=== PATIENT | female | born 1960 | race Caucasian/White ===

== ENCOUNTER 2019-06-30 20:43 | Emergency (ER) | payer MEDICARE, MEDICAID ==
[2019-06-30] MEDS ORDERED: Sodium Chloride 0.9% 10 ML Syringe FLUSH PRN (20:54)
[2019-06-30] MEDS ORDERED: Sodium Chloride 0.9% 2.5 ML Syringe FLUSH PRN (20:54)
--- NOTE | 2019-06-30 20:55 | EDM.PDOC ---
ED HPI GENERAL MEDICAL PROBLEM - General Chief Complaint: Upper Extremity Injury/Pain Stated Complaint: PT HAS BACK PAIN Time Seen by Provider: 06/30/19 20:46 - History of Present Illness INITIAL COMMENTS - FREE TEXT/NARRATIVE: HISTORY AND PHYSICAL: History of present illness: Patient 58-year-old white female with an extensive past medical history including coronary artery disease with stent 4 who presents with a concern of bilateral arm pain upper back pain that began when she was helping her sister moving pulled a muscle in her left arm and chest she denied discomfort in her chest denies palpitations diaphoresis nausea vomiting or shortness of breath she states this has been relatively constant 1 month patient states she has history of chronic anemia Review of systems: As per history of present illness and below otherwise all systems reviewed and negative. Past medical history: As per history of present illness and as reviewed below otherwise noncontributory. Surgical history: As per history of present illness and as reviewed below otherwise noncontributory. Social history: No reported history of drug or alcohol abuse. Family history: As per history of present illness and as reviewed below otherwise noncontributory. Physical exam: HEENT: Atraumatic, normocephalic, pupils reactive, negative for conjunctival pallor or scleral icterus, mucous membranes moist, throat clear, neck supple, nontender, trachea midline. Lungs: Clear to auscultation, breath sounds equal bilaterally, chest nontender. Heart: S1S2, regular, negative for clicks, rubs, or JVD. Abdomen: Soft, nondistended, nontender. Negative for masses or hepatosplenomegaly. Negative for costovertebral tenderness. Pelvis: Stable nontender. Genitourinary: Deferred. Rectal: Deferred. Extremities: Atraumatic, negative for cords or calf pain. Neurovascular unremarkable. Neuro: Awake, alert, oriented. Cranial nerves II through XII unremarkable. Cerebellum unremarkable. Motor and sensory unremarkable throughout. Exam nonfocal. Diagnostics: CBC CMP troponin PT/INR chest x-ray EKG Therapeutics: IV diagnostic cardiac sonographer Impression: #1 medical screening exam #2 history of coronary artery disease #3 bilateral arm and back pain 1 month Definitive disposition and diagnosis as appropriate pending reevaluation and review of above. left arm Pain Score (Numeric/FACES): 10 - Related Data Allergies Allergy/AdvReac Type Severity Reaction Status Date / Time Penicillins Allergy Hives Verified 06/30/19 21:07 Home Meds: Home Meds Aspirin [Lite Coat Aspirin] 81 mg PO DAILY 05/04/14 [History] Isosorbide Mononitrate [Isosorbide Mononitrate ER] 30 mg PO BID 05/04/14 [ History] Lisinopril 20 mg PO DAILY 05/04/14 [History] Metoprolol Succinate 25 mg PO BID 05/04/14 [History] Omeprazole 20 mg PO DAILY 05/04/14 [History] Simvastatin [Zocor] 40 mg PO BEDTIME 05/04/14 [History] Ticagrelor [Brilinta] 90 mg PO Q12HR 05/04/14 [History] Review of Systems - Review of Systems Review Of Systems: ROS reveals no pertinent complaints other than HPI. ED EXAM, GENERAL - Physical Exam Exam: See Below (T dictation) Course - Vital Signs Text/Narrative:: I discussed with patient her anemia as well as EKG changes and atypical presentation tonight. With unclear clinical statement I suggested admission for observation and possible blood transfusion patient declines states her anemia is chronic and she'll follow-up with her primary care doctor regarding expressed concerns. Last Recorded V/S: Last Vital Signs Temp 36.1 C 06/30/19 20:43 Pulse 89 06/30/19 20:43 Resp 18 06/30/19 20:43 BP 149/68 H 06/30/19 20:43 Pulse Ox 98 06/30/19 20:43 - Orders/Labs/Meds Orders: Active Orders 24 hr Category Date Time Status Cardiac Monitoring [RC] . DIRECTED Care 06/30/19 20:54 Active EKG Documentation Completion [RC] STAT Care 06/30/19 20:55 Active Sodium Chloride 0.9% [Saline Flush] Med 06/30/19 20:54 Active 10 ml FLUSH ASDIRECTED PRN Sodium Chloride 0.9% [Saline Flush] Med 06/30/19 20:54 Active 2.5 ml FLUSH ASDIRECTED PRN Saline Lock Insert [OM.PC] Stat Oth 06/30/19 20:54 Ordered Medication Orders Sodium Chloride (Saline Flush) 10 ml FLUSH ASDIRECTED PRN PRN Reason: Keep Vein Open Sodium Chloride (Saline Flush) 2.5 ml FLUSH ASDIRECTED PRN PRN Reason: Keep Vein Open Labs: Laboratory Tests 06/30/19 06/30/19 06/30/19 Range/Units 21:05 21:05 21:05 WBC 8.27 (4.0-11.0) K/uL RBC 3.08 L (4.30-5.90) M/uL Hgb 7.7 L (12.0-16.0) g/dL Hct 25.1 L (36.0-46.0) % MCV 81.5 (80.0-98.0) fL MCH 25.0 L (27.0-32.0) pg MCHC 30.7 L (31.0-37.0) g/dL RDW Std Deviation 55.7 (28.0-62.0) fl RDW Coeff of Amelia 19 H (11.0-15.0) % Plt Count 439 H (150-400) K/uL MPV 9.00 (7.40-12.00) fL Neut % (Auto) 58.3 (48.0-80.0) % Lymph % (Auto) 30.6 (16.0-40.0) % [place] % (Auto) 7.7 (0.0-15.0) % Eos % (Auto) 2.4 (0.0-7.0) % Baso % (Auto) 1.0 (0.0-1.5) % Neut # (Auto) 4.8 (1.4-5.7) K/uL Lymph # (Auto) 2.5 H (0.6-2.4) K/uL [place] # (Auto) 0.6 (0.0-0.8) K/uL Eos # (Auto) 0.2 (0.0-0.7) K/uL Baso # (Auto) 0.1 (0.0-0.1) K/uL Nucleated RBC % 0.0 /100WBC Nucleated RBCs # 0 K/uL INR 0.97 Sodium 143 (136-145) mmol/L Potassium 4.1 (3.5-5.1) mmol/L Chloride 109 H (98-107) mmol/L Carbon Dioxide 24.1 (21.0-32.0) mmol/L BUN 20 H (7.0-18.0) mg/dL Creatinine 1.1 H (0.6-1.0) mg/dL Est Cr Clr Drug Dosing TNP Estimated GFR (MDRD) 50.8 ml/min Glucose 110 H (74-106) mg/dL Calcium 9.2 (8.5-10.1) mg/dL Total Bilirubin 0.3 (0.2-1.0) mg/dL AST 18 (15-37) IU/L ALT 22 (14-63) IU/L Alkaline Phosphatase 68 (46-116) U/L Troponin I < 0.050 (0.000-0.056) ng/mL Total Protein 6.9 (6.4-8.2) g/dL Albumin 3.7 (3.4-5.0) g/dL Globulin 3.2 (2.6-4.0) g/dL Albumin/Globulin Ratio 1.2 (0.9-1.6) Meds: Medications Generic Name Dose Route Start Last Admin Trade Name Freq PRN Reason Stop Dose Admin Sodium Chloride 10 ml 06/30/19 20:54 Saline Flush FLUSH ASDIRECTED PRN Keep Vein Open Sodium Chloride 2.5 ml 06/30/19 20:54 Saline Flush FLUSH ASDIRECTED PRN Keep Vein Open Departure - Departure Time of Disposition: 22:02 Disposition: Home, Self-Care 01 Condition: Fair Clinical Impression: Chronic anemia, Abnormal EKG, Encounter for medical screening examination - Discharge Information Referrals: Sherif Arroyo MD [Primary Care Provider] - Forms: ED Department Discharge Additional Instructions: The following information is given to patients seen in the emergency department who are being discharged to home. This information is to outline your options for follow-up care. We provide all patients seen in our emergency department with a follow-up referral. The need for follow-up, as well as the timing and circumstances, are variable depending upon the specifics of your emergency department visit. If you don't have a primary care physician on staff, we will provide you with a referral. We always advise you to contact your personal physician following an emergency department visit to inform them of the circumstance of the visit and for follow-up with them and/or the need for any referrals to a consulting specialist. The emergency department will also refer you to a specialist when appropriate. This referral assures that you have the opportunity for followup care with a specialist. All of these measure are taken in an effort to provide you with optimal care, which includes your followup. Under all circumstances we always encourage you to contact your private physician who remains a resource for coordinating your care. When calling for followup care, please make the office aware that this follow-up is from your recent emergency room visit. If for any reason you are refused follow-up, please contact the [facility] emergency department at and asked to speak to the emergency department charge nurse. Follow-up primary medical doctor continue current medications return as needed as discussed - My Orders Last 24 Hours: My Active Orders 06/30/19 20:54 Cardiac Monitoring [RC] . DIRECTED Sodium Chloride 0.9% [Saline Flush] 10 ml FLUSH ASDIRECTED PRN Sodium Chloride 0.9% [Saline Flush] 2.5 ml FLUSH ASDIRECTED PRN Saline Lock Insert [OM.PC] Stat 06/30/19 20:55 EKG Documentation Completion [RC] STAT - Assessment/Plan Last 24 Hours: My Active Orders 06/30/19 20:54 Cardiac Monitoring [RC] . DIRECTED Sodium Chloride 0.9% [Saline Flush] 10 ml FLUSH ASDIRECTED PRN Sodium Chloride 0.9% [Saline Flush] 2.5 ml FLUSH ASDIRECTED PRN Saline Lock Insert [OM.PC] Stat 06/30/19 20:55 EKG Documentation Completion [RC] STAT
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
[2019-06-30 21:37] LABS: CHLORIDE,CL 109 mmol/L (98-107); SODIUM,NA 143 mmol/L (136-145)
== END 2019-06-30 22:15 | disposition home or self-care (01) ==
LOC: MW.ED 20:43
DX: M54.6 Pain in thoracic spine (principal); M79.602 Pain in left arm; M79.601 Pain in right arm; D64.9 Anemia, unspecified; R94.31 Abnormal electrocardiogram [ECG] [EKG]; I25.10 Atherosclerotic heart disease of native coronary artery without angina pectoris; Z88.0 Allergy status to penicillin; Z79.82 Long term (current) use of aspirin; Z79.899 Other long term (current) drug therapy
CPT/HCPCS: 71045; 71045-26; 80053; 84484; 85025; 85610; 93005; 99284-25

== ENCOUNTER 2021-08-21 20:20 | Emergency (ER) | payer OTHER, MEDICARE, MEDICAID ==
[2021-08-21] MEDS ORDERED: Acetaminophen 325 MG Tab PO ONE (20:36)
[2021-08-21] MEDS ORDERED: Cyclobenzaprine 10 MG Tab PO ONE (20:37)
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
== END 2021-08-21 22:04 | disposition home or self-care (01) ==
LOC: MW.ED 20:20
DX: S09.90XA Unspecified injury of head, initial encounter (principal); M54.2 Cervicalgia; I10 Essential (primary) hypertension; I25.2 Old myocardial infarction; Z88.1 Allergy status to other antibiotic agents; Z79.82 Long term (current) use of aspirin; Z79.899 Other long term (current) drug therapy; V49.40XA Driver injured in collision with unspecified motor vehicles in traffic accident, initial encounter
CPT/HCPCS: 70450; 72125; 99284; A9270

== ENCOUNTER 2022-12-24 06:55 | Day surgery (SDC) | payer MEDICARE, MEDICAID ==
[~2022-12-24 06:55] MED LIST: Lactated Ringers 1,000 ML IV SCH
[2022-12-24] MEDS ORDERED: Propofol 200 MG/20 ML SDV ONE ×2 (07:35→09:37)
[2022-12-24] MEDS ORDERED: Midazolam 1 MG/ML 2 ML SDV ONE (07:35)
[2022-12-24] MEDS ORDERED: fentaNYL 100 MCG/2 ML SDV ONE (07:36)
[2022-12-24] MEDS ORDERED: Lactated Ringers 1,000 ML IV SCH (10:00)
== END 2022-12-24 11:05 | disposition home or self-care (01) ==
LOC: MW.SDS 06:55
PROVIDERS: ATTEND Surgery
DX: K29.00 Acute gastritis without bleeding (principal); K29.50 Unspecified chronic gastritis without bleeding; D64.9 Anemia, unspecified; K62.5 Hemorrhage of anus and rectum; C20 Malignant neoplasm of rectum; K57.30 Diverticulosis of large intestine without perforation or abscess without bleeding; F17.210 Nicotine dependence, cigarettes, uncomplicated; I10 Essential (primary) hypertension; K21.9 Gastro-esophageal reflux disease without esophagitis; E78.00 Pure hypercholesterolemia, unspecified; G89.29 Other chronic pain; M54.9 Dorsalgia, unspecified; K31.A0 Gastric intestinal metaplasia, unspecified; Z80.0 Family history of malignant neoplasm of digestive organs; Z88.0 Allergy status to penicillin; Z88.3 Allergy status to other anti-infective agents; Z79.899 Other long term (current) drug therapy; Z79.82 Long term (current) use of aspirin; Z98.890 Other specified postprocedural states; Z95.5 Presence of coronary angioplasty implant and graft
CPT/HCPCS: 36415; 43239; 45380; 82378; J2250; J2704; J3010; J7120

== ENCOUNTER 2023-04-14 10:18 | Observation (INO) | payer MEDICARE, MEDICAID ==
[2023-04-14] MEDS ORDERED: Sodium Chloride 0.9% 1,000 ML IV ONE (10:50)
[2023-04-14] MEDS ORDERED: Ondansetron 4 MG/2 ML SDV IVPUSH ONE (10:50)
[2023-04-14] MEDS ORDERED: Morphine 4 MG/ML Syringe IVPUSH ONE ×2 (10:50→12:22)
[2023-04-14 11:17] LABS: HEMATOCRIT 35.3 % (36.0-46.0); HEMOGLOBIN 11.9 g/dL (12.0-16.0); MEAN CORPUSCULAR HEMOGLOBIN 33.3 pg (27.0-32.0); MEAN CORPUSCULAR HGB CONC 33.7 g/dL (31.0-37.0); MEAN CORPUSCULAR VOLUME 98.9 fL (80.0-98.0); NRBC ABSOLUTE 0 K/uL; PLATELET COUNT,PLT 288 K/uL (150-400); RED BLOOD CELL COUNT 3.57 M/uL (4.30-5.90); WHITE BLOOD CELL COUNT,WBC 7.71 K/uL (4.0-11.0)
[2023-04-14 11:42] LABS: ALBUMIN 3.2 g/dL (3.4-5.0); BILIRUBIN TOTAL 0.5 mg/dL (0.2-1.0); CALCIUM 8.3 mg/dL (8.5-10.1); CARBON DIOXIDE,CO2 26.3 mmol/L (21.0-32.0); CREATININE 0.9 mg/dL (0.6-1.0); EST CRCL DRUG DOSING (CG) 48.28 mL/min; POTASSIUM,K 3.3 mmol/L (3.5-5.1); PROTEIN TOTAL,TP 6.5 g/dL (6.4-8.2)
[2023-04-14 11:47] LABS: LACTIC ACID 1.2 mmol/L (0.4-2.0)
[2023-04-14 12:45] LABS: BAND ABSOLUTE MAN 0.5; BAND PERCENT MAN 7 %; BASOPHILS ABSOLUTE MAN 0.1 (0.0-0.1); BASOPHILS PERCENT MAN 1 % (0.0-1.5); EOSINOPHILS ABSOLUTE MAN 0.8 (0.0-0.7); EOSINOPHILS PERCENT MAN 10 % (0.0-7.0); LYMPHOCYTES ABSOLUTE MAN 0.5 (0.6-2.4); LYMPHOCYTES PERCENT MAN 7 % (16.0-40.0); SEG NEUTROPHILS ABSOLUTE MAN 5.8 (1.4-5.7); SEG NEUTROPHILS PERCENT MAN 75 % (48.0-80.0)
[2023-04-14] MEDS ORDERED: Iopamidol 755 MG/ML 500 ML Multipack Bottle IVPUSH STA (13:29)
[2023-04-14 13:33] LABS: APPEARANCE,URINE CLEAR; COLOR,URINE YELLOW; GLUCOSE,URINE NEGATIVE (NEGATIVE); KETONES,URINE NEGATIVE (NEGATIVE); LEUKOCYTE ESTERASE,URINE NEGATIVE (NEGATIVE); NITRITE,URINE NEGATIVE (NEGATIVE); OCCULT BLOOD,URINE NEGATIVE (NEGATIVE); PROTEIN,URINE TRACE mg/dL (NEGATIVE); UROBILINOGEN,URINE 0.2 EU/dL (<2.0)
[2023-04-14 13:39] LABS: BILIRUBIN,URINE SMALL (NEGATIVE)
[2023-04-14 14:01] LABS: BACTERIA,URINE FEW (NEGATIVE); EPITHELIAL CELLS,URINE FEW (NONE-FEW); MUCUS,URINE MODERATE (NONE-MOD)
[2023-04-14] MEDS ORDERED: Potassium Chloride 20 MEQ Tab.ER PO ONE (16:53)
[2023-04-14] MEDS ORDERED: Albuterol/Ipratropium 3.0-0.5 MG/3 ML Neb Soln NEB PRN (16:54)
[2023-04-14] MEDS ORDERED: Acetaminophen 325 MG Tab PO PRN (16:54)
[2023-04-14] MEDS ORDERED: oxyCODONE 5 MG Tab PO PRN (16:54)
[2023-04-14] MEDS ORDERED: Ondansetron 4 MG Tab.DIS PO PRN (16:54)
[2023-04-14] MEDS: Polyethylene Glycol 3350 Powder 17 GM Packet PO SCH ×2 (18:01→22:11)
[2023-04-14] MEDS: Nicotine 21 MG/24 Hr Patch TRDERM SCH (18:02)
[2023-04-14] MEDS: Lactated Ringers 1,000 ML IV SCH (18:05)
[2023-04-14] MEDS: Simvastatin 40 MG Tab PO SCH (20:40)
[2023-04-14] MEDS: Pantoprazole 40 MG in Sodium Chloride 0.9% 10 ML IVPUSH SCH (20:40)
[2023-04-14] MEDS: HYDROmorphone 1 MG/ML Syringe IVPUSH PRN (20:43)
[2023-04-14] MEDS ORDERED: Isosorbide Mononitrate 30 MG Tab.ER PO SCH (21:00)
[2023-04-14] MEDS ORDERED: Promethazine 25 MG Tab PO PRN (23:48)
[2023-04-15 05:56] LABS: BASOPHILS PERCENT AUTO 0.2 % (0.0-1.5); EOSINOPHILS ABSOLUTE AUTO 0.8 K/uL (0.0-0.7); EOSINOPHILS PERCENT AUTO 14.1 % (0.0-7.0); HEMOGLOBIN 9.4 g/dL (12.0-16.0); LYMPHOCYTES ABSOLUTE AUTO 0.7 K/uL (0.6-2.4); LYMPHOCYTES PERCENT AUTO 11.2 % (16.0-40.0); MEAN CORPUSCULAR HEMOGLOBIN 32.5 pg (27.0-32.0); MEAN CORPUSCULAR HGB CONC 32.4 g/dL (31.0-37.0); MEAN CORPUSCULAR VOLUME 100.3 fL (80.0-98.0); MONOCYTES ABSOLUTE AUTO 0.5 K/uL (0.0-0.8); MONOCYTES PERCENT AUTO 8.2 % (0.0-15.0); NEUTROPHILS PERCENT AUTO 66.3 % (48.0-80.0); NRBC ABSOLUTE 0 K/uL; PLATELET COUNT,PLT 248 K/uL (150-400); RED BLOOD CELL COUNT 2.89 M/uL (4.30-5.90); WHITE BLOOD CELL COUNT,WBC 5.97 K/uL (4.0-11.0)
[2023-04-15] MEDS: HYDROmorphone 1 MG/ML Syringe IVPUSH PRN ×2 (05:56→17:42)
[2023-04-15 06:23] LABS: ALBUMIN 2.5 g/dL (3.4-5.0); BILIRUBIN TOTAL 0.3 mg/dL (0.2-1.0); CARBON DIOXIDE,CO2 25.5 mmol/L (21.0-32.0); CREATININE 0.7 mg/dL (0.6-1.0); EST CRCL DRUG DOSING (CG) 62.07 mL/min; MAGNESIUM 1.8 mg/dL (1.8-2.4); POTASSIUM,K 3.8 mmol/L (3.5-5.1); PROTEIN TOTAL,TP 5.1 g/dL (6.4-8.2)
[2023-04-15] MEDS: Lactated Ringers 1,000 ML IV SCH ×2 (07:11→20:01)
[2023-04-15] MEDS ORDERED: CAPECITABINE 500 MG PO SCH (08:00)
[2023-04-15] MEDS: Famotidine 20 MG Tab PO SCH (09:08)
[2023-04-15] MEDS: Isosorbide Mononitrate 30 MG Tab.ER PO SCH (09:09)
[2023-04-15] MEDS: Metoprolol Tartrate 25 MG Tab PO SCH ×3 (09:10→22:06)
[2023-04-15] MEDS: Nicotine 21 MG/24 Hr Patch TRDERM SCH ×2 (09:10→09:38)
[2023-04-15] MEDS: Polyethylene Glycol 3350 Powder 17 GM Packet PO SCH ×2 (09:11→21:00)
[2023-04-15] MEDS: Enoxaparin 40 MG/0.4 ML Syringe SUBCUT SCH (09:11)
[2023-04-15] MEDS ORDERED: Dexamethasone 4 MG/ML SDV IVPUSH ONE (09:34)
[2023-04-15] MEDS: amLODIPine 5 MG Tab PO SCH (09:40)
[2023-04-15] MEDS: Pantoprazole 40 MG in Sodium Chloride 0.9% 10 ML IVPUSH SCH ×2 (11:39→21:25)
[2023-04-15] MEDS ORDERED: Lactated Ringers 1,000 ML IV SCH (20:15)
[2023-04-15] MEDS: Simvastatin 40 MG Tab PO SCH (21:24)
[2023-04-15] MEDS: Ticagrelor 90 MG Tab PO SCH (21:43)
[2023-04-16 06:02] LABS: HEMATOCRIT 31.4 % (36.0-46.0); HEMOGLOBIN 10.3 g/dL (12.0-16.0); LYMPHOCYTES ABSOLUTE AUTO 0.6 K/uL (0.6-2.4); LYMPHOCYTES PERCENT AUTO 6.9 % (16.0-40.0); MEAN CORPUSCULAR HEMOGLOBIN 32.7 pg (27.0-32.0); MEAN CORPUSCULAR HGB CONC 32.8 g/dL (31.0-37.0); MEAN CORPUSCULAR VOLUME 99.7 fL (80.0-98.0); MONOCYTES ABSOLUTE AUTO 0.6 K/uL (0.0-0.8); MONOCYTES PERCENT AUTO 7.2 % (0.0-15.0); NEUTROPHILS ABSOLUTE AUTO 7.4 K/uL (1.4-5.7); NEUTROPHILS PERCENT AUTO 85.9 % (48.0-80.0); NRBC ABSOLUTE 0 K/uL; PLATELET COUNT,PLT 284 K/uL (150-400); RED BLOOD CELL COUNT 3.15 M/uL (4.30-5.90); WHITE BLOOD CELL COUNT,WBC 8.57 K/uL (4.0-11.0)
[2023-04-16 06:24] LABS: CALCIUM 8.8 mg/dL (8.5-10.1); CARBON DIOXIDE,CO2 24.8 mmol/L (21.0-32.0); CREATININE 0.9 mg/dL (0.6-1.0); EST CRCL DRUG DOSING (CG) 48.28 mL/min; POTASSIUM,K 4.4 mmol/L (3.5-5.1)
[2023-04-16] MEDS: HYDROmorphone 1 MG/ML Syringe IVPUSH PRN (06:40)
[2023-04-16] MEDS ORDERED: Pantoprazole 40 MG Tab.CR PO SCH (07:30)
[2023-04-16] MEDS ORDERED: Dexamethasone 4 MG/ML SDV IVPUSH ONE (08:00)
[2023-04-16] MEDS ORDERED: Aspirin 325 MG Tab ONE (08:16)
[2023-04-16] MEDS: Isosorbide Mononitrate 30 MG Tab.ER PO SCH (08:35)
[2023-04-16] MEDS: Metoprolol Tartrate 25 MG Tab PO SCH (08:35)
[2023-04-16] MEDS: amLODIPine 5 MG Tab PO SCH (08:36)
[2023-04-16] MEDS: Polyethylene Glycol 3350 Powder 17 GM Packet PO SCH (08:37)
[2023-04-16] MEDS: Enoxaparin 40 MG/0.4 ML Syringe SUBCUT SCH (08:37)
[2023-04-16] MEDS: Nicotine 21 MG/24 Hr Patch TRDERM SCH (08:40)
[2023-04-16] MEDS: Ticagrelor 90 MG Tab PO SCH (08:59)
[2023-04-16] MEDS ORDERED: Aspirin 81 MG Tab.EC PO SCH (09:00)
[2023-04-16] MEDS: Famotidine 20 MG Tab PO SCH (11:23)
== END 2023-04-16 12:30 | disposition home or self-care (01) ==
LOC: MW.ED 10:18 → MW.MS 14:43
PROVIDERS: ADMIT Internal Medicine; ATTEND Internal Medicine
DX: K52.0 Gastroenteritis and colitis due to radiation (principal); C20 Malignant neoplasm of rectum; K44.9 Diaphragmatic hernia without obstruction or gangrene; E87.6 Hypokalemia; D64.9 Anemia, unspecified; K57.30 Diverticulosis of large intestine without perforation or abscess without bleeding; J44.9 Chronic obstructive pulmonary disease, unspecified; K21.9 Gastro-esophageal reflux disease without esophagitis; I25.10 Atherosclerotic heart disease of native coronary artery without angina pectoris; E78.5 Hyperlipidemia, unspecified; I10 Essential (primary) hypertension; M54.9 Dorsalgia, unspecified; G89.29 Other chronic pain; F17.210 Nicotine dependence, cigarettes, uncomplicated; Z90.49 Acquired absence of other specified parts of digestive tract; Z88.0 Allergy status to penicillin; Z79.82 Long term (current) use of aspirin; Z79.899 Other long term (current) drug therapy; Z88.8 Allergy status to other drugs, medicaments and biological substances; Z79.01 Long term (current) use of anticoagulants
CPT/HCPCS: 36415; 74018; 74177; 80048; 80053; 81001; 83605; 83690; 83735; 85025; 96361; 96374; 96375; 96376; 99285; A9270; C9113; J1100; J1170; J1650; J2270; J2405; J3490; J7030; J7120; Q9967; 99222; 99232; 99239

== ENCOUNTER 2023-04-26 06:26 | Day surgery (SDC) | payer MEDICARE, MEDICAID ==
[~2023-04-26 06:26] MED LIST changes: +Sodium Chloride 0.9% 10 ML Syringe FLUSH PRN; +Sodium Chloride 0.9% 2.5 ML Syringe FLUSH PRN; +Sodium Chloride 0.9% 20 ML SDV IV PRN; +ceFAZolin 2 GM in Sodium Chloride 0.9% 50 ML IV ONE
[2023-04-26] MEDS ORDERED: Morphine 2 MG/ML SYRINGE IVPUSH PRN (07:07)
[2023-04-26] MEDS ORDERED: droPERidol 5 MG/2 ML SDV IVPUSH PRN (07:07)
[2023-04-26] MEDS ORDERED: Ondansetron 4 MG/2 ML SDV IVPUSH PRN (07:07)
[2023-04-26] MEDS ORDERED: Metoclopramide 10 MG/2 ML SDV IVPUSH PRN (07:07)
[2023-04-26] MEDS ORDERED: HYDROmorphone 1 MG/ML Syringe IVPUSH PRN (07:07)
[2023-04-26] MEDS ORDERED: Naloxone 0.4 MG/ML SDV IVPUSH PRN (07:07)
[2023-04-26] MEDS ORDERED: fentaNYL 50 MCG/ML SDV IVPUSH PRN (07:07)
[2023-04-26] MEDS ORDERED: Albuterol 0.083% 2.5 MG/3 ML Neb Soln NEB PRN (07:07)
[2023-04-26] MEDS ORDERED: Heparin Sodium 100 Units/ML 3 ML Syringe ONE (07:27)
[2023-04-26] MEDS ORDERED: Bupivacaine 0.5% 10 ML SDV ONE (07:27)
[2023-04-26] MEDS ORDERED: Lidocaine 1% 20 ML MDV ONE (07:27)
[2023-04-26] MEDS ORDERED: propofoL 50 ML ONE (07:30)
[2023-04-26] MEDS ORDERED: Propofol 200 MG/20 ML SDV ONE (07:30)
[2023-04-26] MEDS ORDERED: fentaNYL 100 MCG/2 ML SDV ONE (07:30)
[2023-04-26 07:54] LABS: BASOPHILS PERCENT AUTO 0.2 % (0.0-1.5); EOSINOPHILS ABSOLUTE AUTO 0.3 K/uL (0.0-0.7); EOSINOPHILS PERCENT AUTO 4.1 % (0.0-7.0); HEMATOCRIT 33.1 % (36.0-46.0); HEMOGLOBIN 10.7 g/dL (12.0-16.0); LYMPHOCYTES ABSOLUTE AUTO 0.3 K/uL (0.6-2.4); LYMPHOCYTES PERCENT AUTO 3.9 % (16.0-40.0); MEAN CORPUSCULAR HEMOGLOBIN 33.3 pg (27.0-32.0); MEAN CORPUSCULAR HGB CONC 32.3 g/dL (31.0-37.0); MEAN CORPUSCULAR VOLUME 103.1 fL (80.0-98.0); MONOCYTES ABSOLUTE AUTO 1.2 K/uL (0.0-0.8); NEUTROPHILS ABSOLUTE AUTO 6.4 K/uL (1.4-5.7); NEUTROPHILS PERCENT AUTO 76.8 % (48.0-80.0); NRBC ABSOLUTE 0 K/uL; PLATELET COUNT,PLT 281 K/uL (150-400); RED BLOOD CELL COUNT 3.21 M/uL (4.30-5.90); WHITE BLOOD CELL COUNT,WBC 8.28 K/uL (4.0-11.0)
[2023-04-26 08:16] LABS: CARCINOEMBRYONIC ANTIGEN,CEA < 0.5 ng/mL
[2023-04-26] MEDS ORDERED: Midazolam 1 MG/ML 2 ML SDV ONE (08:17)
[2023-04-26 08:21] LABS: ALANINE AMINOTRANSFERASE,ALT 23 IU/L (14-63); ALBUMIN 3.2 g/dL (3.4-5.0); ALKALINE PHOSPHATASE 76 U/L (46-116); ASPARTATE AMNIOTRANSFERASE,AST 13 IU/L (15-37); BILIRUBIN TOTAL 0.6 mg/dL (0.2-1.0); BLOOD UREA NITROGEN,BUN 14 mg/dL (7.0-18.0); CALCIUM 8.4 mg/dL (8.5-10.1); CHLORIDE,CL 102 mmol/L (98-107); CREATININE 0.8 mg/dL (0.6-1.0); EST CRCL DRUG DOSING (CG) 54.31 mL/min; GLUCOSE RANDOM 102 mg/dL (74-106); POTASSIUM,K 3.7 mmol/L (3.5-5.1); PROTEIN TOTAL,TP 6.3 g/dL (6.4-8.2); SODIUM,NA 139 mmol/L (136-145)
[2023-04-26 08:23] LABS: ESTIMATED GFR 83 mL/min (>60)
[2023-04-26] MEDS ORDERED: Ketamine 500 mg/10 ML MDV ONE (08:23)
== END 2023-04-26 11:05 | disposition home or self-care (01) ==
LOC: MW.SDS 06:26
PROVIDERS: ATTEND Surgery
DX: Z45.2 Encounter for adjustment and management of vascular access device (principal); D49.0 Neoplasm of unspecified behavior of digestive system; F17.210 Nicotine dependence, cigarettes, uncomplicated; D64.9 Anemia, unspecified; K29.50 Unspecified chronic gastritis without bleeding; I25.10 Atherosclerotic heart disease of native coronary artery without angina pectoris; J44.9 Chronic obstructive pulmonary disease, unspecified; I10 Essential (primary) hypertension; K21.9 Gastro-esophageal reflux disease without esophagitis; I25.2 Old myocardial infarction; E78.00 Pure hypercholesterolemia, unspecified; M25.512 Pain in left shoulder; Z88.0 Allergy status to penicillin; Z79.899 Other long term (current) drug therapy; Z90.49 Acquired absence of other specified parts of digestive tract; Z98.51 Tubal ligation status; Z88.8 Allergy status to other drugs, medicaments and biological substances; Z80.0 Family history of malignant neoplasm of digestive organs; Z79.82 Long term (current) use of aspirin
CPT/HCPCS: 36415; 36561; 71045; 76000; 80053; 82378; 85025; C1788; J1642; J2250; J2704; J3010; J3490; J7120

== ENCOUNTER 2023-08-29 05:56 | Emergency (ER) | payer MEDICARE, MEDICAID | END 2023-08-29 06:10 | disposition home or self-care (01) | LOC: MW.ED 05:56 | DX: T82.524A Displacement of infusion catheter, initial encounter (principal); E78.00 Pure hypercholesterolemia, unspecified; I10 Essential (primary) hypertension; I25.2 Old myocardial infarction; J44.9 Chronic obstructive pulmonary disease, unspecified; K21.9 Gastro-esophageal reflux disease without esophagitis; Z88.8 Allergy status to other drugs, medicaments and biological substances; Z88.0 Allergy status to penicillin; Z79.82 Long term (current) use of aspirin; Z79.899 Other long term (current) drug therapy | CPT/HCPCS: 99283 ==